=== PATIENT | male | born 1985 | race African-American/Black ===

== ENCOUNTER 2023-12-08 20:55 | Emergency (ER) | payer BC ==
[2023-12-08 21:10] VITALS: BP 118/72; PULSE 78; RESP 20; TEMP 98.7; BMI 25.6
== END 2023-12-08 22:33 | disposition home or self-care (01) ==
LOC: JERFT 20:55 → JER 20:55 → JERFT 22:33
DX: S60.946A Unspecified superficial injury of right little finger, initial encounter (principal); Y93.66 Activity, soccer
CPT/HCPCS: 73140-TC-RT-FY; 99283-25